=== PATIENT | female | born 1960 | race Caucasian/White ===

== ENCOUNTER 2017-03-24 07:27 | Outpatient (CLI) | payer OTHER ==
[2017-03-24 11:00] LABS: BASOPHILS # (AUTO) 0.1 10^3/uL (0.0-0.1); BASOPHILS % (AUTO) 0.6 %; EOSINOPHILS # (AUTO) 0.4 10^3/uL (0.0-0.7); EOSINOPHILS % (AUTO) 2.5 %; HCT - HEMATOCRIT 40.8 % (37.0-47.0); HGB - HEMOGLOBIN 13.8 g/dL (12.0-16.0); LYMPHOCYTES # (AUTO) 8.7 10^3/uL (1.5-3.5); LYMPHOCYTES % (AUTO) 57.9 %; MEAN CORPUSCULAR HEMOGLOBIN 30.5 pg (27.0-31.0); MEAN CORPUSCULAR HGB CONC 33.8 g/dL (32.0-36.0); MEAN CORPUSCULAR VOLUME 90.1 fL (81.0-99.0); MEAN PLATELET VOLUME 8.5 fL (7.9-10.8); MONOCYTES # (AUTO) 0.8 10^3/uL (0.0-1.0); MONOCYTES % (AUTO) 5.3 %; NEUTROPHILS % (AUTO) 33.7 %; NUCLEATED RED BLOOD CELLS AUTO 0.1 /100WBC; RED BLOOD COUNT 4.53 10^6/uL (4.20-5.40); RED CELL DISTRIBUTION WIDTH 12.8 % (12.0-15.0); UNCORRECTED WHITE BLOOD COUNT 14.9 x10^3/uL; WHITE BLOOD COUNT 14.9 x10^3/uL (4.8-10.8)
[2017-03-24 11:07] LABS: BILIRUBIN,TOTAL 0.5 mg/dL (0.2-1.0); CALCIUM 9.6 mg/dL (8.5-10.3); CREATININE 0.8 mg/dL (0.4-1.0); POTASSIUM 4.2 mmol/L (3.5-5.0); TOTAL PROTEIN 7.2 g/dL (6.7-8.2)
[2017-03-24 11:08] LABS: ALBUMIN/GLOBULIN RATIO 1.5 (1.0-2.2)
[2017-03-24 11:46] LABS: PLATELET ESTIMATE, MANUAL NORMAL (130-450,000) (NORMAL); PLATELET MORPHOLOGY NORMAL APPEARANCE (NORMAL); WBC MORPHOLOGY (MULTIPLE) NORMAL APPEARANCE (NORMAL)
== END 2017-03-24 07:28 | disposition home or self-care (01) ==
LOC: LAB.F 07:27
PROVIDERS: ATTEND Physician Assistant Medical
DX: Z00.00 Encounter for general adult medical examination without abnormal findings (principal); I10 Essential (primary) hypertension; N95.1 Menopausal and female climacteric states; Z79.890 Hormone replacement therapy
CPT/HCPCS: 36415; 80053; 82670; 85025

== ENCOUNTER 2017-04-23 07:21 | Outpatient (CLI) | payer OTHER | END 2017-04-23 07:22 | disposition home or self-care (01) | LOC: DI 07:21 | PROVIDERS: ATTEND Physician Assistant Medical | DX: Z53.9 Procedure and treatment not carried out, unspecified reason (principal) ==

== ENCOUNTER 2017-05-13 08:58 | Outpatient (CLI) | payer OTHER ==
--- NOTE | 2017-05-13 17:52 | Mammography Report ---
DATE OF SERVICE: 05/13/2017 DIGITAL DIAGNOSTIC BILATERAL MAMMOGRAM: 05/13/2017 CLINICAL INDICATION: Localized right breast pain. COMPARISON: 09/2015, 07/2013, 04/2011, 03/2010. TECHNIQUE: Bilateral CC, MLO, laterally exaggerated CC, right true lateral views were obtained. Markers were placed at the site of maximal tenderness identified by the patient in the right upper outer quadrant. FINDINGS: The breasts again demonstrate heterogeneously dense fibroglandular parenchyma bilaterally. Coarse and punctate, typically benign calcifications are present. No suspicious masses, clustered microcalcifications, or regions of architectural distortion are identified. Specifically, no mammographic abnormality is appreciated in the right upper outer quadrant, at the site of localized tenderness indicated by the markers. IMPRESSION: BENIGN FINDINGS. RECOMMENDATION: ROUTINE ANNUAL SCREENING UNLESS OTHERWISE CLINICALLY INDICATED. BIRADS CATEGORY 2-BENIGN FINDINGS. STANDARD QUALIFYING STATEMENTS: 1. This examination was reviewed with the aid of Computer-Aided Detection (CAD). 2. A negative or benign imaging report should not delay biopsy if clinically suspicious findings are present. Consider surgical consultation if warranted. More than 5% of cancers are not identified by imaging. 3. Dense breasts may obscure an underlying neoplasm. TD: 05/13/2017 18:51
== END 2017-05-13 08:59 | disposition home or self-care (01) ==
LOC: DI 08:58
PROVIDERS: ATTEND Physician Assistant Medical
DX: N64.4 Mastodynia (principal)
CPT/HCPCS: 77066

== ENCOUNTER 2019-07-13 15:10 | Emergency (ER) | payer OTHER ==
--- NOTE | 2019-07-13 15:42 | XRAY Report ---
Reason: cough Procedure Date: 07/13/2019 Accession Number: [id number] / [id number] Procedure: XR - Chest 2 View X-Ray CPT Code: 07901 Final Report FULL RESULT: EXAM: CHEST RADIOGRAPHY. EXAM DATE: 07/13/2019 03:27 PM. CLINICAL HISTORY: Cough. COMPARISON: CHEST 2 VIEW 06/30/2019 11:03 AM. TECHNIQUE: 2 views. FINDINGS: Lungs/Pleura: No focal opacities evident. No pleural effusion. No pneumothorax. Normal volumes. Mediastinum: Heart and mediastinal contours are unremarkable. Other: None. IMPRESSION: Normal 2-view chest radiography. No active disease, stable since previous. RADIA
[2019-07-13] MEDS ORDERED: DEXAMETHASONE 10 MG/ML VIAL PO STA (17:22)
[2019-07-13] MEDS ORDERED: CHERRY SYRUP 10 ML UDC PO ONE (17:22)
[2019-07-13] MEDS ORDERED: IPRATROPIUM/ALBUTEROL 3 ML NEB INH STA (17:23)
[2019-07-13] MEDS ORDERED: LIDOCAINE 1% 2 ML VIAL MC ONE (17:23)
[2019-07-13] MEDS ORDERED: cefTRIAXone 1 GM VIAL IM STA (17:23)
--- NOTE | 2019-07-13 17:25 | ED Physician Documentation ---
PD HPI URI - Stated complaint Stated Complaint: COUGH - Chief complaint Chief Complaint: Resp - History obtained from History obtained from: Patient - History of Present Illness Timing - onset: How many weeks ago (5) Timing duration: Weeks (5) Timing details: Gradual onset, Still present, Waxing and waning Associated symptoms: Nasal congestion, Rhinorrhea, Dry cough, Dyspnea Contributing factors: Sick contact Improves by: Rest, Medication Worsened by: Activity Similar symptoms before: Diagnosis (bronchitis with asthma) Recently seen: Clinic, Emergency Dept - Additional information Additional information: 59-year-old female with a history of hypertension has developed a cough and congestion associated with some shortness of breath and she has been in to see her primary care doctor she has been in to see here us here in the emergency department and she was placed on a course of prednisone and a inhaler and she had some improvement in this temporarily she had some worsening of her symptoms again and she went in to see her primary care doctor was placed on a course of a azithromycin and she finished this about 1 week ago. She states that it did not seem to help all that much and she has progressively gotten worse. She has had undulating symptoms for 5 weeks seem to get better with some prednisone. Review of Systems Constitutional: denies: Fever Eyes: denies: Decreased vision Ears: reports: Ear pain Nose: reports: Rhinorrhea / runny nose, Congestion Throat: denies: Sore throat Cardiac: denies: Chest pain / pressure, Palpitations Respiratory: reports: Dyspnea, Cough GI: denies: Nausea, Vomiting : denies: Dysuria, Frequency Skin: denies: Rash Musculoskeletal: denies: Neck pain, Back pain, Extremity pain Neurologic: denies: Generalized weakness, Focal weakness, Numbness PD PAST MEDICAL HISTORY - Past Medical History Cardiovascular: Hypertension Musculoskeletal: Fibromyalgia - Past Surgical History Past Surgical History: No General: Colonoscopy, EGD - Present Medications Home Medications: Ambulatory Orders Medication Instructions Recorded Confirmed Albuterol Sulf [Ventolin Hfa 1 - 2 puffs INH Q4HR PRN #1 inhaler 06/30/19 Inhaler] Benzonatate [Tessalon Perle] 100 - 200 mg PO TID PRN #30 capsule 06/30/19 Cyclobenzaprine [Flexeril] 10 mg PO TID PRN 06/30/19 06/30/19 Estradiol [Estrace] 2 mg PO 06/30/19 Gabapentin 300 mg PO 06/30/19 06/30/19 Metoprolol Tartrate 25 mg PO 06/30/19 Progesterone, Micronized 100 mg PO 06/30/19 [Progesterone] predniSONE [Deltasone] 10 mg PO [id number] #42 tab 06/30/19 Albuterol Sulf [Ventolin Hfa 1 - 2 puffs INH Q4HR PRN #1 inhaler 07/13/19 Inhaler] Benzonatate [Tessalon Perle] 100 - 200 mg PO TID PRN #30 capsule 07/13/19 Cefdinir 300 mg PO BID #20 capsule 07/13/19 predniSONE [Prednisone] 40 mg PO DAILY #10 tablet 07/13/19 - Allergies Allergies/Adverse Reactions: Allergies Allergy/AdvReac Type Severity Reaction Status Date / Time Penicillins Allergy Unknown Verified 07/13/19 15:13 - Social History Does the pt smoke?: No Smoking Status: Never smoker Does the pt drink ETOH?: No Does the pt have substance abuse?: No - Immunizations Immunizations are current?: Yes PD ED PE NORMAL - Vitals Vital signs reviewed: Yes (hypertensive) - General General: Alert and oriented X 3, No acute distress, Well developed/nourished - HEENT HEENT: Atraumatic, PERRL, EOMI, Other (right TM is inflamed with distortion of the landmarks the left is clear the mucous membranes are dry and the posterior pharynx is swollen/inflamed) - Neck Neck: Supple, no meningeal sign, No bony TTP - Cardiac Cardiac: RRR, No murmur - Respiratory Respiratory: No respiratory distress, Other (Inspiratory and expiratory wheezes throughout.) - Abdomen Abdomen: Soft, Non tender - Back Back: No CVA TTP, No spinal TTP - Derm Derm: Normal color, Warm and dry, No rash - Extremities Extremities: No deformity, No edema, No calf tenderness / cord - Neuro Neuro: Alert and oriented X 3, 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, No motor deficit, No sensory deficit, Normal speech Eye Opening: Spontaneous Motor: Obeys Commands Verbal: Oriented GCS Score: 15 - Psych Psych: Normal mood, Normal affect Results - Vitals Vitals: Vital Signs - 24 hr 07/13/19 07/13/19 07/13/19 15:13 16:49 17:39 Temperature 36.9 C 36.8 C Heart Rate 84 72 79 Respiratory 14 22 18 Rate Blood Pressure 145/88 H 135/91 H 134/77 H O2 Saturation 98 100 97 03/18/20 17:50 Temperature Heart Rate 82 Respiratory 16 Rate Blood Pressure O2 Saturation Oxygen O2 Source Room air - Rads (name of study) Chest Radiology: Prelim report reviewed, EMP read indepedently, See rad report PD MEDICAL DECISION MAKING - ED course Complexity details: reviewed old records, reviewed results, re-evaluated patient, considered differential, d/w patient ED course: 59-year-old female with reactive airway disease and URI now appears to have right otitis media. She is administered dexamethasone 10 mg orally we have given her an injection of Rocephin IM and will place her on cefdinir as well as a 5-day course of prednisone. I have indicated the patient expectation is to aponte ve resolution of this illness. Departure - Departure Disposition: 01 Home, Self Care Clinical Impression: Asthmatic bronchitis with acute exacerbation Qualifiers: Asthma severity: mild Asthma persistence: intermittent Qualified Code(s): J45.21 - Mild intermittent asthma with (acute) exacerbation Otitis media Qualifiers: Otitis media type: suppurative Chronicity: acute Laterality: right Recurrence: non-recurrent Spontaneous tympanic membrane rupture: without spontaneous rupture Qualified Code(s): H66.001 - Acute suppurative otitis media without spontaneous rupture of ear drum, right ear Condition: Stable Instructions: ED Otitis Media Acute Adult Follow-Up: Perez Akbar MD [Primary Care Provider] - Prescriptions: Albuterol Sulf [Ventolin Hfa Inhaler] 1 - 2 puffs INH Q4HR PRN #1 inhaler PRN Reason: Shortness Of Air/Wheezing Benzonatate [Tessalon Perle] 100 - 200 mg PO TID PRN #30 capsule PRN Reason: Cough Cefdinir 300 mg PO BID #20 capsule predniSONE [Prednisone] 40 mg PO DAILY #10 tablet
[2019-07-13 17:41] VITALS: BP 134/77
== END 2019-07-13 18:53 | disposition home or self-care (01) ==
LOC: ED 15:10
DX: J06.9 Acute upper respiratory infection, unspecified (principal); J45.21 Mild intermittent asthma with (acute) exacerbation; H66.001 Acute suppurative otitis media without spontaneous rupture of ear drum, right ear; I10 Essential (primary) hypertension
CPT/HCPCS: 71046; 94640; 99284; A9270

== ENCOUNTER 2019-09-23 01:46 | Outpatient (CLI) | payer OTHER | END 2019-09-23 01:47 | disposition critical access hospital (66) | LOC: EMS 01:46 | PROVIDERS: ATTEND Surgery | DX: R10.9 Unspecified abdominal pain (principal); R19.7 Diarrhea, unspecified | CPT/HCPCS: A0425; A0429 ==

== ENCOUNTER 2019-09-23 02:06 | Emergency (ER) | payer OTHER ==
[2019-09-23] MEDS ORDERED: HYDROmorphone 1 MG/ML CARPUJECT IVP STA (02:20)
[2019-09-23] MEDS ORDERED: ONDANSETRON 4 MG/2 ML VIAL IVP STA (02:20)
[2019-09-23] MEDS ORDERED: SODIUM CHLORIDE 0.9% 1,000 ML IV STA (02:20)
[2019-09-23 02:35] LABS: BASOPHILS % (AUTO) 0.7 %; EOSINOPHILS % (AUTO) 1.3 %; HGB - HEMOGLOBIN 13.7 g/dL (12.0-16.0); LYMPHOCYTES % (AUTO) 53.9 %; MEAN CORPUSCULAR HEMOGLOBIN 31.9 pg (27.0-31.0); MEAN CORPUSCULAR HGB CONC 34.5 g/dL (32.0-36.0); MEAN CORPUSCULAR VOLUME 92.5 fL (81.0-99.0); MEAN PLATELET VOLUME 9.5 fL (7.9-10.8); MONOCYTES % (AUTO) 9.7 %; PLT - PLATELET COUNT 251 10^3/uL (130-450); RED BLOOD COUNT 4.29 10^6/uL (4.20-5.40); RED CELL DISTRIBUTION WIDTH 12.9 % (12.0-15.0); WHITE BLOOD COUNT 17.5 x10^3/uL (4.8-10.8)
--- NOTE | 2019-09-23 02:39 | ED Physician Documentation ---
History of Present Illness - Stated complaint Stated Complaint: ABD PX - Chief complaint Chief Complaint: Abd Pain - History obtained from History obtained from: Patient - Additonal information Additional information: Patient comes emergency department complaining of abdominal pain which is more of a cramping sensation, which started about 3 hours ago. Patient states that she keeps having "spasms" of pain, accompanied by diarrhea and nausea. Patient states that she has a history of GERD and IBS, and believes that they are both flaring up. Patient also states that she has a history of fibromyalgia, and that she is hurting everywhere. She denies any fevers or chills. No sick contacts. No blood in her vomit or stools today. No dysuria. No other complaints at this time.She states her pain ranges from a 7 to a 10 out of 10. Nothing makes better or worse. Review of Systems Ten Systems: 10 systems reviewed and negative Constitutional: reports: Reviewed and negative Eyes: reports: Reviewed and negative Ears: reports: Reviewed and negative Nose: reports: Reviewed and negative Throat: reports: Reviewed and negative Cardiac: reports: Reviewed and negative Respiratory: reports: Reviewed and negative GI: reports: Abdominal Pain, Nausea, Diarrhea : reports: Reviewed and negative Skin: reports: Reviewed and negative Musculoskeletal: reports: Reviewed and negative Neurologic: reports: Reviewed and negative Psychiatric: reports: Reviewed and negative Endocrine: reports: Reviewed and negative Immunocompromised: reports: Reviewed and negative PD PAST MEDICAL HISTORY - Past Medical History Past Medical History: Yes Cardiovascular: Hypertension GI: GERD, Other Musculoskeletal: Fibromyalgia Other Past Medical History: IBS - Past Surgical History Past Surgical History: Yes General: Colonoscopy, EGD - Present Medications Home Medications: Ambulatory Orders Medication Instructions Recorded Confirmed Cyclobenzaprine [Flexeril] 5 mg PO TID PRN 06/30/19 09/23/19 Estradiol [Estrace] 1 mg PO DAILY 06/30/19 09/23/19 Gabapentin 300 mg PO BID 06/30/19 09/23/19 Metoprolol Tartrate 25 mg PO DAILY 06/30/19 09/23/19 Progesterone, Micronized 100 mg PO DAILY 06/30/19 09/23/19 [Progesterone] Alprazolam [Xanax] 0.5 mg PO BID PRN 09/23/19 09/23/19 Ibuprofen 800 mg PO TID PRN 09/23/19 09/23/19 Ondansetron Odt [Zofran] 4 mg TL Q6H PRN #10 tablet 09/23/19 hydroCHLOROthiazide 25 mg PO DAILY 09/23/19 09/23/19 [Hydrochlorothiazide] - Allergies Allergies/Adverse Reactions: Allergies Allergy/AdvReac Type Severity Reaction Status Date / Time Penicillins Allergy Unknown Verified 09/23/19 02:12 - Social History Does the pt smoke?: No Smoking Status: Never smoker Does the pt drink ETOH?: No Does the pt have substance abuse?: No - Immunizations Immunizations are current?: Yes - POLST Patient has POLST: No PD ED PE NORMAL - Vitals Vital signs reviewed: Yes - General General: Alert and oriented X 3, No acute distress, Well developed/nourished - HEENT HEENT: Atraumatic, PERRL, EOMI, Moist mucous membranes - Neck Neck: Supple, no meningeal sign - Cardiac Cardiac: RRR, No murmur - Respiratory Respiratory: No respiratory distress, Clear bilaterally - Abdomen Abdomen: Soft, Non distended, Other (Mild, diffuse tenderness) - Back Back: No CVA TTP - Derm Derm: Normal color, Warm and dry, No rash - Extremities Extremities: No deformity - Neuro Neuro: Alert and oriented X 3 - Psych Psych: Normal mood, Normal affect Results - Vitals Vitals: Vital Signs - 24 hr 09/23/19 09/23/19 09/23/19 02:08 02:33 03:39 Temperature 36.6 C 36.7 C Heart Rate 79 72 69 Respiratory 18 17 16 Rate Blood Pressure 153/94 H 148/85 H 130/93 H O2 Saturation 100 100 99 09/23/19 04:25 Temperature Heart Rate 65 Respiratory 16 Rate Blood Pressure 134/86 H O2 Saturation 96 Oxygen O2 Source Room air - Labs Labs: Laboratory Tests 09/23/19 09/23/19 01:25 01:25 WBC 17.5 H RBC 4.29 Hgb 13.7 Hct 39.7 MCV 92.5 MCH 31.9 H MCHC 34.5 RDW 12.9 Plt Count 251 MPV 9.5 Neut # (Auto) Not Reportable Lymph # (Auto) Not Reportable Cherry # (Auto) Not Reportable Eos # (Auto) Not Reportable Baso # (Auto) Not Reportable Absolute Nucleated RBC Not Reportable Total Counted 100 Band Neuts % (Manual) 0 Abnorm Lymph % (Manual) 7 Nucleated RBC % Not Reportable Neutrophils # (Manual) 7.4 H Lymphocytes # (Manual) 9.8 H Monocytes # (Manual) 0.2 Eosinophils # (Manual) 0.2 Basophils # (Manual) 0.0 Differential Comment MANUAL DIFFERENTIAL WBC Morphology NORMAL APPEARANCE Platelet Estimate NORMAL (130-450,000) Platelet Morphology NORMAL APPEARANCE RBC Morph Micro Appear NORMAL APPEARANCE Sodium 136 Potassium 3.1 L Chloride 101 Carbon Dioxide 22 Anion Gap 13.0 BUN 14 Creatinine 1.1 H Estimated GFR (MDRD) 51 L Glucose 116 H Calcium 9.0 Total Bilirubin 0.7 AST 31 ALT 33 Alkaline Phosphatase 47 Total Protein 6.9 Albumin 4.3 Globulin 2.6 Albumin/Globulin Ratio 1.7 Lipase 41 - Rads (name of study) CT abd/pelvis Radiology: Final report received, EMP read indepedently, See rad report (No acute findings) PD MEDICAL DECISION MAKING - ED course Complexity details: reviewed results, re-evaluated patient, considered differential, d/w patient ED course: Patient was treated symptomatic with IV fluids, Zofran, and a small dose of Dilaudid, and worked up with laboratory studies. Patient was found to have a leukocytosis of over 17, so she was sent for CT scan of the abdomen and pelvis, which was unremarkable. I reevaluated the patient, was feeling a little better after the Zofran and Dilaudid. She stated she still felt somewhat nauseated, but did not want any further medication. I given her Zofran prepack from the ED, as well as a prescription for Zofran. We have discussed follow-up and the usual indications for return. Departure - Departure Disposition: 01 Home, Self Care Clinical Impression: Gastroenteritis Abdominal pain Qualifiers: Abdominal location: lower abdomen, unspecified Qualified Code(s): R10.30 - Lower abdominal pain, unspecified Condition: Stable Instructions: ED Abdominal Pain Unkn Cause, ED Gastroenteritis Viral Prescriptions: Ondansetron Odt [Zofran] 4 mg TL Q6H PRN #10 tablet PRN Reason: Nausea / Vomiting
[2019-09-23 02:46] LABS: ALBUMIN 4.3 g/dL (3.2-5.5); ALBUMIN/GLOBULIN RATIO 1.7 (1.0-2.2); BILIRUBIN,TOTAL 0.7 mg/dL (0.2-1.0); CREATININE 1.1 mg/dL (0.4-1.0); TOTAL PROTEIN 6.9 g/dL (6.7-8.2)
[2019-09-23 02:51] LABS: BAND NEUTROPHILS % (MANUAL) 0 %
[2019-09-23 02:54] LABS: ABNORMAL LYMPHS % (MANUAL) 7 %; EOSINOPHILS # (MANUAL) 0.2 10^3/uL (0-0.7); LYMPHOCYTES # (MANUAL) 9.8 10^3/uL (1.5-3.5); LYMPHOCYTES % (MANUAL) 49 %; MONOCYTES # (MANUAL) 0.2 10^3/uL (0.0-1.0)
[2019-09-23 02:55] LABS: DIFFERENTIAL COMMENT MANUAL DIFFERENTIAL; PLATELET ESTIMATE, MANUAL NORMAL (130-450,000) (NORMAL); PLATELET MORPHOLOGY NORMAL APPEARANCE (NORMAL); RBC MORPHOLOGY (MULTIPLE) NORMAL APPEARANCE (NORMAL)
[2019-09-23] MEDS ORDERED: IOVERSOL 320 100 ML VIAL IVP ONE ×2 (03:15→03:38)
--- NOTE | 2019-09-23 03:56 | CT Report ---
Reason: low abd pain, nausea Procedure Date: 09/23/2019 Accession Number: [id number] / [id number] Procedure: CT - Abdomen/Pelvis W CPT Code: Final Report FULL RESULT: EXAM: CT ABDOMEN AND PELVIS EXAM DATE: 09/23/2019 03:40 AM. CLINICAL HISTORY: Low abd pain, nausea. COMPARISONS: None. TECHNIQUE: Routine helical CT imaging was performed through the abdomen and pelvis. IV contrast: OPTIRAY 320. Enteric contrast: No. Reconstructions: Coronal and sagittal. In accordance with CT protocol optimization, one or more of the following dose reduction techniques were utilized for this exam: automated exposure control, adjustment of mA and/or KV based on patient size, or use of iterative reconstructive technique. FINDINGS: Lung Bases: Unremarkable. Liver: Normal. No masses. Gallbladder/Bile Ducts: Unremarkable. Spleen: Normal. Pancreas: Normal. Adrenal Glands: Normal. Kidneys: Normal. No masses or hydronephrosis. Peritoneal Cavity/Bowel: Normal. No free fluid, free air or adenopathy. No masses or acute inflammatory process. The appendix is not clearly identified yet there are no inflammatory changes in the right lower quadrant and no extraluminal fluid collections. There are no definite inflammatory changes of the colon. Pelvic Organs: The uterus is retroverted. There is a cyst associated with the right ovary. Vasculature: No aneurysms or other significant abnormality. Bones: No significant abnormality. Other: None. IMPRESSION: 1. No definite inflammatory changes in the abdomen and pelvis. 2. Nonvisualization of the appendix yet indirect evidence for appendicitis. RADIA
[2019-09-23] MEDS ORDERED: ONDANSETRON ODT 4 MG Prepack 2 TL PRN (04:16)
[2019-09-23 04:31] VITALS: BP 134/86
== END 2019-09-23 04:31 | disposition home or self-care (01) ==
LOC: EDUNIT# → ED 02:06
DX: K52.9 Noninfective gastroenteritis and colitis, unspecified (principal); K21.9 Gastro-esophageal reflux disease without esophagitis; Z87.19 Personal history of other diseases of the digestive system; M79.7 Fibromyalgia; I10 Essential (primary) hypertension
CPT/HCPCS: 36415; 74177; 80053; 83690; 85025; 96361; 96374; 96375; 99284; J1170; Q9967

== ENCOUNTER 2022-10-21 15:17 | Outpatient (CLI) | payer OTHER ==
--- NOTE | 2022-10-22 10:25 | Mammography Report ---
BILATERAL DIGITAL SCREENING MAMMOGRAM 3D/2D: 10/21/2022 CLINICAL: Routine screening. Comparison is made to exams dated: 05/13/2017 mammogram, 08/23/2013 mammogram, 10/21/2015 mammogram, an d 05/27/2011 mammogram - [facility]. There are scattered areas of fibroglandular density in both breasts (category b / 25%-50% glandular t issue). No significant masses, calcifications, or other findings are seen in either breast. There has been no significant interval change. IMPRESSION: NEGATIVE There is no mammographic evidence of malignancy. A 1 year screening mammogram is recommended. Based on the Tyrer Cuzick model (a risk assessment model) the patients lifetime risk is 11.6% and he r 10 year risk is 4.7%. According to the ACR, ACS, and NCCN guidelines, an annual breast MRI exam elsa ng with mammogram is recommended if the patients lifetime risk is 20% or greater. This exam was interpreted at Station ID: [id number]. NOTE: For mammograms, a report in lay terms will be sent to the patient. Approximately 15% of breast malignancies will not be visualized mammographically. In the management of a palpable breast mass, a negative mammogram must not discourage biopsy of a clinically suspicious lesion. Electronically Signed By: Mata burt/liset:10/22/2022 06:45:32 letter sent: No_Letter ACR BI-RADS Category 1: Negative 3341F PARENCHYMAL PATTERN: (A) - The breast(s) demonstrate(s) scattered fibroglandular densities. BI-RADS CATEGORY: (1) - 1 Mammogram [id number] 1 year screening LATERALITY: (B)
== END 2022-10-21 15:18 | disposition home or self-care (01) ==
LOC: DI 15:17
PROVIDERS: ATTEND Nurse Practitioner Family
DX: Z12.31 Encounter for screening mammogram for malignant neoplasm of breast (principal)

== ENCOUNTER 2023-03-04 13:08 | Emergency (ER) | payer OTHER ==
[2023-03-04 13:32] VITALS: O2SAT 100
--- NOTE | 2023-03-04 15:57 | CT Report ---
PROCEDURE: HEAD WO INDICATIONS: headache > 1 mnth; hx od leukemia TECHNIQUE: Noncontrast 4.5 mm thick angled axial sections acquired from the foramen magnum to the vertex. For r adiation dose reduction, the following was used: automated exposure control, adjustment of mA and/or kV according to patient size. COMPARISON: None. FINDINGS: Image quality: Excellent. CSF spaces: Basal cisterns are patent. No extra-axial fluid collections. Ventricles are normal in size and shape. Brain: No midline shift. No intracranial masses or hemorrhage. Modi-white matter interface is norm al. Skull and face: Calvarium and visualized facial bones are intact, without suspicious lesions. Sinuses: Visualized sinuses and mastoids are clear. IMPRESSION: No acute intracranial pathology. Reviewed by: Liliana Le MD on 03/04/2023 3:55 PM PST Approved by: Liliana Le MD on 03/04/2023 3:55 PM [facility] Station ID: [id number]
[2023-03-04] MEDS ORDERED: KETOROLAC 30 MG/ML VIAL IM STA (15:58)
[2023-03-04] MEDS ORDERED: DROPERIDOL 5 MG/2 ML VIAL IM STA (15:58)
--- NOTE | 2023-03-04 16:02 | ED Physician Documentation ---
History of Present Illness - Stated complaint Stated Complaint: H/A - Chief complaint Chief Complaint: Neuro - Additonal information Additional information: 62-year-old female presents to the emergency department for evaluation of a headache that began on February 04. No associated falls or trauma not sudden onset. She does have a history of migraines and tried her typical migraine medications such as Tylenol and Aleve but found no relief. The headache persisted for at least 1 week and she had a Zoom encounter with her PCP who ordered sumatriptan hand. This also did not alleviate the headache. Patient states its been constant since then holocranial. She did go to [facility] on February 27. At that time she had labs obtained. She did not wait for CT imaging. She does have a history of chronic lymphocytic leukemia. Past medical history also includes GERD, hypertension. She is a tobacco user. She denies any recent URI. No fevers. Patient brought with her the records from [facility]. I was able to review the full lab work obtained and it does show an elevated white blood cell count of 17.8 thousand. Her blood chemistry was otherwise without acute worrisome derangement. PD PAST MEDICAL HISTORY - Past Medical History Past Medical History: Yes Cardiovascular: Hypertension GI: GERD, Other Musculoskeletal: Fibromyalgia - Past Surgical History Past Surgical History: Yes General: Colonoscopy, EGD - Present Medications Home Medications: Ambulatory Orders Medication Instructions Recorded Confirmed Gabapentin 300 mg PO BID 06/30/19 03/04/23 Metoprolol Tartrate 25 mg PO DAILY 06/30/19 03/04/23 hydroCHLOROthiazide 25 mg PO DAILY 09/23/19 03/04/23 [Hydrochlorothiazide] Citalopram [CeleXA] 10 mg PO BID 02/13/23 03/04/23 - Allergies Allergies/Adverse Reactions: Allergies Allergy/AdvReac Type Severity Reaction Status Date / Time Penicillins Allergy Unknown Verified 08/24/20 15:58 - Social History Does the pt smoke?: No Smoking Status: Never smoker Does the pt drink ETOH?: No Does the pt have substance abuse?: No - Immunizations Immunizations are current?: Yes - POLST Patient has POLST: No Results - Vitals Vitals: Vital Signs - 24 hr 03/04/23 13:28 Temperature 36.7 C Heart Rate 71 Respiratory 16 Rate Blood Pressure 147/92 H O2 Saturation 100 Oxygen O2 Source Room air PD Medical Decision Making - ED course Complexity details: reviewed results, re-evaluated patient, d/w patient ED course: This is a very pleasant 62-year-old female who does have a history of CLL presents emergency department for evaluation of a headache that is been ongoing since February 04. She does have a history of migraines and this began as such but did not respond to typical treatments. She has had no fevers upper respiratory infections recent travel or vomiting. Has taken Tylenol and Aleve with little effect. Has taken Imitrex without effect. Was seen at [facility] several days ago and had labs obtained which is able to review. She does have labs consistent with a CLL but essentially unchanged from baseline. They did give her some Compazine, Decadron and Toradol and magnesium in the emergency department at [facility] which briefly helped her headache but did not resolve it. She did not stay for CT scan. Presents here with the headache. Neurological exam is unremarkable. Normal cerebellar exam. No fevers. CT of the head was negative. No findings to suggest tumor, hemorrhage or old infarcts. I did give the patient a single dose of Toradol and Inapsine and on reevaluation she is having some headache resolution but not fully abated. Clinically history is not consistent with subarachnoid hemorrhage. Headache was not sudden onset. This is not consistent with a sinus venous thrombosis. History and exam is not consistent with an infectious etiology or stroke. She has a normal neurological exam NIHSS of 0. She is scheduled to see neurology this upcoming Thursday on the which I advised her to continue. We did discuss the usual emergent return precautions for failure symptoms to resolve or worsen before then. Departure - Departure Disposition: 01 Home, Self Care Clinical Impression: Headache Qualifiers: Headache type: unspecified Headache chronicity pattern: unspecified pattern Intractability: intractable Qualified Code(s): R51.9 - Headache, unspecified Comments: Elli you are scheduled to see your neurologist on the . Please continue to follow closely with this appointment. The CT of your head today did not show any worrisome findings. I encourage you to keep a journal of the medications and the times you are taking him as that may be helpful to see how your symptoms are responding. Return to the ER for vomiting, double vision, fevers, or any other emergent concerns. Forms: PCP List
[2023-03-04 18:11] VITALS: BP 165/85
== END 2023-03-04 18:05 | disposition home or self-care (01) ==
LOC: ED 13:08
DX: R51.9 Headache, unspecified (principal); C91.10 Chronic lymphocytic leukemia of B-cell type not having achieved remission; I10 Essential (primary) hypertension; F17.200 Nicotine dependence, unspecified, uncomplicated; Z79.899 Other long term (current) drug therapy
CPT/HCPCS: 96372; 99283; 99284